=== PATIENT | female | born 1995 | race Two or more races ===

== ENCOUNTER 2019-01-29 10:39 | Inpatient (IN) | payer OTHER ==
[~2019-01-29] VITALS: Ht 167.6 cm; Wt 141.0 kg
[2019-02-01] MEDS ORDERED: PRENATAL 19 TA1 EACH PO (05:51)
== END 2019-02-03 12:04 | DRG 807 ==
LOC: OB/GYN → LDR 02-01 05:08 → OB/GYN 02-01 05:08
PROVIDERS: ADMIT Obstetrics & Gynecology Maternal & Fetal Medicine
PROC: 10E0XZZ Delivery of Products of Conception, External Approach (ICD-10-PCS; principal; 2019-02-01)
PROC: 0W8NXZZ Division of Female Perineum, External Approach (ICD-10-PCS; 2019-02-01)
PROC: 4A1HXCZ Monitoring of Products of Conception, Cardiac Rate, External Approach (ICD-10-PCS; 2019-02-01)
DX: O80 Encounter for full-term uncomplicated delivery (principal); Z37.0 Single live birth; Z3A.39 39 weeks gestation of pregnancy

== ENCOUNTER 2019-01-31 09:53 | Outpatient (CLI) | payer OTHER ==
[2019-02-01] MEDS ORDERED: PRENATAL 19 TA1 EACH PO (05:51)
== END 2019-01-31 10:40 | disposition home or self-care (01) ==
LOC: NST 09:53
DX: Z34.83 Encounter for supervision of other normal pregnancy, third trimester (principal)

== ENCOUNTER 2020-03-25 14:36 | Inpatient (IN) | payer OTHER ==
[~2020-03-25] VITALS: Ht 167.6 cm; Wt 62.6 kg
[~2020-03-25 14:36] MED LIST: PRENATAL 19 TA1 EACH PO
== END 2020-03-26 08:25 | disposition home or self-care (01) | DRG 833 ==
LOC: NST 14:36 → LDR 15:54
PROVIDERS: ADMIT Obstetrics & Gynecology; ATTEND Obstetrics & Gynecology
PROC: 4A1HXCZ Monitoring of Products of Conception, Cardiac Rate, External Approach (ICD-10-PCS; principal; 2020-03-25)
DX: O60.02 Preterm labor without delivery, second trimester (principal); O30.003 Twin pregnancy, unspecified number of placenta and unspecified number of amniotic sacs, third trimester

== ENCOUNTER 2020-04-02 12:48 | Outpatient (CLI) | payer OTHER | END 2020-04-02 13:39 | disposition home or self-care (01) | LOC: NST 12:48 | PROVIDERS: ATTEND Obstetrics & Gynecology | DX: Z34.82 Encounter for supervision of other normal pregnancy, second trimester (principal) ==

== ENCOUNTER 2020-04-17 14:42 | Inpatient (IN) | payer OTHER ==
[~2020-04-17] VITALS: Ht 167.6 cm; Wt 66.2 kg
== END 2020-04-20 12:20 | DRG 832 ==
LOC: NST 14:42 → LDR 16:38 → OB/GYN 04-19 10:32
PROVIDERS: ADMIT Obstetrics & Gynecology Maternal & Fetal Medicine; ATTEND Obstetrics & Gynecology Maternal & Fetal Medicine
PROC: 4A1HXCZ Monitoring of Products of Conception, Cardiac Rate, External Approach (ICD-10-PCS; principal; 2020-04-17)
PROC: BY4FZZZ Ultrasonography of Third Trimester, Single Fetus (ICD-10-PCS; 2020-04-19)
DX: O60.03 Preterm labor without delivery, third trimester (principal); O26.873 Cervical shortening, third trimester; O26.843 Uterine size-date discrepancy, third trimester; O30.043 Twin pregnancy, dichorionic/diamniotic, third trimester

== ENCOUNTER 2020-05-06 12:42 | Outpatient (CLI) | payer OTHER | END 2020-05-06 13:28 | disposition home or self-care (01) | LOC: NST 12:42 | PROVIDERS: ATTEND Obstetrics & Gynecology | DX: Z34.83 Encounter for supervision of other normal pregnancy, third trimester (principal) ==

== ENCOUNTER 2020-05-13 13:22 | Outpatient (CLI) | payer OTHER | END 2020-05-13 15:49 | disposition home or self-care (01) | LOC: NST 13:22 | PROVIDERS: ATTEND Obstetrics & Gynecology Maternal & Fetal Medicine | DX: Z34.83 Encounter for supervision of other normal pregnancy, third trimester (principal) ==

== ENCOUNTER 2020-05-20 09:52 | Outpatient (CLI) | payer OTHER | END 2020-05-20 12:46 | disposition home or self-care (01) | LOC: NST 09:52 | PROVIDERS: ATTEND Obstetrics & Gynecology Maternal & Fetal Medicine | DX: Z34.83 Encounter for supervision of other normal pregnancy, third trimester (principal) ==

== ENCOUNTER → 2020-05-24 | Outpatient (CLI) | payer OTHER | END | disposition home or self-care (01) | LOC: NST 09:20 | PROVIDERS: ATTEND Obstetrics & Gynecology Maternal & Fetal Medicine | DX: Z34.83 Encounter for supervision of other normal pregnancy, third trimester (principal) ==

== ENCOUNTER 2020-05-30 09:42 | Outpatient (CLI) | payer OTHER | END 2020-05-30 11:08 | disposition home or self-care (01) | LOC: NST 09:42 | PROVIDERS: ATTEND Obstetrics & Gynecology Maternal & Fetal Medicine | DX: Z34.83 Encounter for supervision of other normal pregnancy, third trimester (principal) ==

== ENCOUNTER 2020-06-05 09:15 | Outpatient (CLI) | payer OTHER | END 2020-06-05 11:14 | disposition home or self-care (01) | LOC: NST 09:15 | PROVIDERS: ATTEND Obstetrics & Gynecology Maternal & Fetal Medicine | DX: Z34.83 Encounter for supervision of other normal pregnancy, third trimester (principal) ==

== ENCOUNTER 2020-06-07 09:40 | Outpatient (CLI) | payer OTHER | END 2020-06-07 11:28 | disposition home or self-care (01) | LOC: NST 09:40 | PROVIDERS: ATTEND Obstetrics & Gynecology Maternal & Fetal Medicine | DX: Z34.83 Encounter for supervision of other normal pregnancy, third trimester (principal) ==

== ENCOUNTER 2021-07-22 07:49 | Outpatient (CLI) | payer OTHER | END 2021-07-22 07:52 | disposition home or self-care (01) | LOC: LAB 07:49 | PROVIDERS: ATTEND Emergency Medicine Pediatric Emergency Medicine | DX: Z03.818 Encounter for observation for suspected exposure to other biological agents ruled out (principal) ==